=== PATIENT | female | born 1990 | race Caucasian/White ===

== ENCOUNTER 2024-10-09 17:50 | Emergency (ER) | payer OTHER ==
[~2024-10-09] VITALS: Ht 165.1 cm; Wt 116.1 kg
[2024-10-09 18:40] VITALS: TEMP 98.4
[2024-10-09 18:54] LABS: BASOPHILS # (AUTO) 0.1 K/uL (0.0-0.2); BASOPHILS % (AUTO) 0.7 % (0.0-2.0); EOSINOPHILS # (AUTO) 0.1 K/uL (0.0-0.7); HEMATOCRIT 37 % (33-45); HEMOGLOBIN 12.2 g/dL (11.5-14.8); LYMPHOCYTES # (AUTO) 2.1 K/uL (0.8-4.8); LYMPHOCYTES % (AUTO) 28.4 % (20.0-44.0); MEAN CORPUSCULAR HEMOGLOBIN 26 PG (26.0-33.0); MEAN CORPUSCULAR HGB CONC 33 g/dl (31.0-36.0); MEAN CORPUSCULAR VOLUME 79 fL (82-100); MONOCYTES # (AUTO) 0.4 K/uL (0.1-1.30); MONOCYTES % (AUTO) 5.7 % (2.0-12.0); NEUTROPHILS # (AUTO) 4.6 K/uL (1.8-8.9); NEUTROPHILS % (AUTO) 63.2 % (43.0-81.0); PLATELET COUNT (AUTO) 311 K/uL (150-450); RED BLOOD CELL COUNT(AUTO) 4.71 MIL/uL (4.0-5.2); RED CELL DISTRIBUTION WIDTH 14.5 % (11.5-15.0); WHITE BLOOD COUNT (AUTO) 7.3 K/uL (4.3-11.0)
[2024-10-09 19:04] LABS: CALCIUM, SERUM 8.6 mg/dL (8.5-10.1); CREATININE 1.2 mg/dL (0.6-1.3); POTASSIUM 4.4 mmol/L (3.5-5.1)
[2024-10-09] MEDS ORDERED: LORAZEPAM INJ 2 MG/ML VIAL ONE (19:04)
[2024-10-09 19:10] LABS: ALBUMIN 3.3 g/dL (3.4-5.0); BILIRUBIN,DIRECT 0.1 mg/dL (0.0-0.2); BILIRUBIN,TOTAL 0.1 mg/dL (0.2-1.0); TOTAL PROTEIN, SERUM 7.3 g/dL (6.4-8.2)
[2024-10-09] MEDS: IV NS 0.9% 1,000 ML BAG IV ONE (19:15)
[2024-10-09] MEDS: LORAZEPAM 4 MG/ML VIAL IV ONE (19:15)
[2024-10-09 19:19] LABS: INR 0.98 (0.91-1.10); PROTHROMBIN TIME 10.4 SECS (9.2-11.1)
[2024-10-09 19:45] VITALS: BP 124/74; O2SAT 100
[2024-10-09] MEDS ORDERED: ONDANSETRON 4 MG TAB.RAPDIS SL ONE (20:30)
== END 2024-10-09 20:29 | disposition home or self-care (01) ==
LOC: ER 18:13
DX: K92.1 Melena (principal)
CPT/HCPCS: 99283; 96374; 96361; 85025; 80048; 80076; 36415; 85730; 86850; J2060; J7030